=== PATIENT | female | born 1945 | race Two or more races ===

== ENCOUNTER → 2016-11-07 | Outpatient (CLI) | payer MEDICARE, MEDICAID ==
[~2016-11-07] MED LIST: APRESOLINE25 MG PO; ATIVAN 1 MG1 MG PO; CARDIZEM CD (T240 MG PO; CARTIA XT240 MG PO; COZAAR100 MG PO; COZAAR50 MG PO; FLONASE 50 MCG/16 GM NOSE; HUMULIN 70100 UNIT/M SUB-Q; KALEXATE15 GM PO; KAYEXALATE15 GM/60 M PO; LASIX40 MG PO; LINZESS145 MCG PO; LOPRESSOR100 MG PO; LOSARTAN POTASS50 MG PO; MAG-OX-400(241400 MG PO; NORCO 5-325 MG1 TAB PO; NORCO 5-325 TA1 EACH PO; NORVASC5 MG PO; NOVOLOG FL100 UNIT/1 SUB-Q; NOVOLOG MI100 UNIT/1 SUB-Q; PHOSLO667 MG PO; PRILOSEC20 MG PO; ROCALTROL0.25 MCG PO; SODIUM BICARBO650 MG PO; TOPROL XL 5050 MG PO; VITAMIN D250000 UNIT PO; VITAMIN D50000 UNIT PO; ZOCOR20 MG PO; ZOCOR40 MG PO; ZYRTEC10 MG PO
== END | disposition disaster alternative care site (69) ==
LOC: GOPD 11-06
DX: T82.590A Other mechanical complication of surgically created arteriovenous fistula, initial encounter (principal)
CPT/HCPCS: C1725; C1769; C1894; J1644